=== PATIENT | male | born 1945 | race Caucasian/White ===

== ENCOUNTER → 2019-07-20 | Outpatient (CLI) | payer MEDICARE ==
[~2019-07-20] MED LIST: AMAN100T PO; AMIT1TAB PO; ASPI-496 PO; CITA10TA4 PO; DOCU240C53 PO; DOXY50CA42 PO; POLY17PO5 PO; REGADENOSON 0.4 MG/5 ML SYRINGE ONE; TAMS0.4C2 PO
== END | disposition home or self-care (01) ==
LOC: CFH 12:37
PROVIDERS: ATTEND Internal Medicine
DX: J98.11 Atelectasis (principal); R07.9 Chest pain, unspecified
CPT/HCPCS: 71046; 78452; 93017; A9502; J2785

== ENCOUNTER 2019-08-05 09:07 | Outpatient (CLI) | payer MEDICARE ==
[~2019-08-05 09:07] MED LIST changes: -REGADENOSON 0.4 MG/5 ML SYRINGE ONE
== END 2019-08-05 23:59 | disposition home or self-care (01) ==
LOC: CFH 09:07
PROVIDERS: ATTEND Internal Medicine
DX: M47.894 Other spondylosis, thoracic region (principal); G20 Parkinson's disease; R94.2 Abnormal results of pulmonary function studies; N40.0 Benign prostatic hyperplasia without lower urinary tract symptoms; K58.9 Irritable bowel syndrome, unspecified; E03.9 Hypothyroidism, unspecified; I95.1 Orthostatic hypotension; F06.31 Mood disorder due to known physiological condition with depressive features; K21.9 Gastro-esophageal reflux disease without esophagitis; E78.1 Pure hyperglyceridemia; J98.6 Disorders of diaphragm; Z12.11 Encounter for screening for malignant neoplasm of colon; Z98.890 Other specified postprocedural states; Z13.220 Encounter for screening for lipoid disorders
CPT/HCPCS: 71250